=== PATIENT | female | born 1990 | race American Indian/Alaskan Native ===

== ENCOUNTER 2017-09-18 21:31 | Emergency (ER) | payer MEDICAID ==
[2017-09-18 23:11] LABS: Basophils % (Auto) 0.4 % (0.0-1.8); Eosinophils % (Auto) 0.5 % (0.0-4.3); Hematocrit 32.1 % (30.3-42.9); Hemoglobin 10.6 gm/dl (10.1-14.3); Lymphocytes # (Auto) 3.1 K/mm3 (1.2-5.4); Lymphocytes % (Auto) 31.4 % (13.4-35.0); Mean Corpuscular HGB Conc 33 % (30-34); Mean Corpuscular Hemoglobin 29 pg (28-32); Mean Corpuscular Volume 88 fl (79-97); Monocytes # (Auto) 0.6 K/mm3 (0.0-0.8); Monocytes % (Auto) 6.2 % (0.0-7.3); Platelet Count 238 K/mm3 (140-440); Red Blood Count 3.67 M/mm3 (3.65-5.03); Red Cell Distribution Width 12.9 % (13.2-15.2)
[2017-09-18 23:32] LABS: BUN/Creatinine Ratio 13; Blood Urea Nitrogen 5 mg/dL (7-17); Calcium 8.9 mg/dL (8.4-10.2); Hemolysis Index 8
[2017-09-19 04:19] LABS: Amorphous Crystals,Urine 1+; Bacteria,Urine 1+ /HPF (Negative); Bilirubin,Urine NEG (Negative); Blood,Urine NEG (Negative); Color,Urine Yellow (Yellow); Mucus,Urine 2+ /HPF; Nitrite,Urine NEG (Negative); Protein,Urine <15 mg/dL mg/dL (Negative)
[2017-09-19] MEDS ORDERED: NACL 0.9% 1000 ML 1,000 ML IV ONE (11:59)
[2017-09-19] MEDS ORDERED: ZOFRAN IV ONE (11:59)
--- NOTE | 2017-09-19 12:42 | Emergency Department Report ---
ED General Adult HPI - General Chief complaint: Nausea/Vomiting/Diarrhea Stated complaint: N/V,WEAKNESS Time Seen by Provider: 09/19/17 11:06 Source: patient Mode of arrival: Ambulatory Limitations: No Limitations - History of Present Illness Initial comments: Patient states her last normal menses was early August. She's been to her OB office but has not been seen by the doctor yet. She's had a positive test. She reports persistent nausea and occasional vomiting. She's had some generalized weakness and some minimal headache and she does not complain of any headache now. She denies abdominal pain. She's had no vaginal bleeding. She denies any pelvic pain. She does not complain of dysuria. -: days(s) Location: head Consistency: now resolved Improves with: none Worsens with: none Associated Symptoms: nausea/vomiting Treatments Prior to Arrival: none - Related Data Previous Rx's Medication Instructions Recorded Last Taken Type Ondansetron [Zofran Odt] 4 mg PO Q8H #7 tab.rapdis 09/19/17 Unknown Rx Allergies Allergy/AdvReac Type Severity Reaction Status Date / Time No Known Allergies Allergy Unverified 09/18/17 22:43 ED Review of Systems ROS: Stated complaint: N/V,WEAKNESS Other details as noted in HPI Constitutional: denies: chills, fever Eyes: denies: eye pain, eye discharge, vision change ENT: denies: ear pain, throat pain Respiratory: denies: cough, shortness of breath, wheezing Cardiovascular: denies: chest pain, palpitations Endocrine: no symptoms reported Gastrointestinal: nausea, vomiting. denies: abdominal pain, diarrhea Genitourinary: as per HPI. denies: urgency, dysuria, discharge Musculoskeletal: denies: back pain, joint swelling, arthralgia Skin: denies: rash, lesions Neurological: as per HPI, headache. denies: weakness, paresthesias Psychiatric: denies: anxiety, depression Hematological/Lymphatic: denies: easy bleeding, easy bruising ED Past Medical Hx - Past Medical History Additional medical history: Anemia - Surgical History Additional Surgical History: - Social History Smoking Status: Never Smoker Substance Use Type: None - Medications Home Medications: Home Medications Medication Instructions Recorded Confirmed Last Taken Type Ondansetron [Zofran Odt] 4 mg PO Q8H #7 tab.rapdis 09/19/17 Unknown Rx ED Physical Exam - General Limitations: No Limitations General appearance: alert, in no apparent distress, other (does appear mildly volume depleted) - Head Head exam: Present: atraumatic, normocephalic - Eye Eye exam: Present: normal appearance, PERRL, EOMI. Absent: scleral icterus - ENT ENT exam: Present: mucous membranes moist - Neck Neck exam: Present: normal inspection. Absent: tenderness, meningismus - Respiratory Respiratory exam: Present: normal lung sounds bilaterally. Absent: respiratory distress - Cardiovascular Cardiovascular Exam: Present: regular rate, normal rhythm. Absent: systolic murmur, diastolic murmur, rubs, gallop - GI/Abdominal GI/Abdominal exam: Present: soft, normal bowel sounds. Absent: distended, tenderness, guarding, rebound, rigid - Extremities Exam Extremities exam: Present: normal inspection - Back Exam Back exam: Present: normal inspection - Neurological Exam Neurological exam: Present: alert, oriented X3, CN II-XII intact. Absent: motor sensory deficit - Psychiatric Psychiatric exam: Present: normal affect, normal mood - Skin Skin exam: Present: warm, dry, intact, normal color. Absent: rash ED Course Vital Signs 09/18/17 09/19/17 09/19/17 22:36 09:50 11:19 Temperature 97.9 F 98.5 F Pulse Rate 62 53 L Respiratory 16 18 16 Rate Blood Pressure 102/65 110/28 O2 Sat by Pulse 100 100 Oximetry - Reevaluation(s) Reevaluation #1: Patient was given IV fluids 1 dose of Zofran with improvement. She is appropriate for outpatient management. 09/19/17 12:39 ED Medical Decision Making - Lab Data Result diagrams: 09/18/17 22:45 09/18/17 22:45 Laboratory Results - last 24 hr 09/18/17 09/18/17 09/18/17 22:45 22:45 22:45 WBC 9.8 RBC 3.67 Hgb 10.6 Hct 32.1 MCV 88 MCH 29 MCHC 33 RDW 12.9 L Plt Count 238 Lymph % (Auto) 31.4 [place] % (Auto) 6.2 Eos % (Auto) 0.5 Baso % (Auto) 0.4 Lymph # 3.1 [place] # 0.6 Eos # 0.0 Baso # 0.0 Seg Neutrophils % 61.5 Seg Neutrophils # 6.0 Sodium 137 Potassium 3.5 L Chloride 99.5 Carbon Dioxide 23 Anion Gap 18 BUN 5 L Creatinine 0.4 L Estimated GFR > 60 BUN/Creatinine Ratio 13 Glucose 95 POC Glucose Calcium 8.9 HCG, Qual Positive Urine Color Urine Turbidity Urine pH Ur Specific [place] Urine Protein Urine Glucose (UA) Urine Ketones Urine Blood Urine Nitrite Urine Bilirubin Urine Urobilinogen Ur Leukocyte Esterase Urine WBC (Auto) Urine RBC (Auto) U Epithel Cells (Auto) Urine Bacteria (Auto) Amorphous Crystals Urine Mucus 09/18/17 09/19/17 22:51 04:07 WBC RBC Hgb Hct MCV MCH MCHC RDW Plt Count Lymph % (Auto) [place] % (Auto) Eos % (Auto) Baso % (Auto) Lymph # [place] # Eos # Baso # Seg Neutrophils % Seg Neutrophils # Sodium Potassium Chloride Carbon Dioxide Anion Gap BUN Creatinine Estimated GFR BUN/Creatinine Ratio Glucose POC Glucose 105 Calcium HCG, Qual Urine Color Yellow Urine Turbidity Clear Urine pH 7.0 Ur Specific [place] 1.012 Urine Protein <15 mg/dl Urine Glucose (UA) Neg Urine Ketones Tr Urine Blood Neg Urine Nitrite Neg Urine Bilirubin Neg Urine Urobilinogen 2.0 Ur Leukocyte Esterase Tr Urine WBC (Auto) 3.0 Urine RBC (Auto) 2.0 U Epithel Cells (Auto) 25.0 H Urine Bacteria (Auto) 1+ Amorphous Crystals 1+ Urine Mucus 2+ Critical care attestation.: If time is entered above; I have spent that time in minutes in the direct care of this critically ill patient, excluding procedure time. ED Disposition Clinical Impression: Hyperemesis gravidarum, Dehydration Disposition: - TO HOME OR SELFCARE Is pt being admited?: No Does the pt Need Aspirin: No Condition: Stable Instructions: Hyperemesis Gravidarum (ED) Additional Instructions: Return as needed if recurrent symptoms. Otherwise follow-up with your OB physician. Increased fluids and advance as tolerated. Prescriptions: Ondansetron [Zofran Odt] 4 mg PO Q8H #7 tab.rapdis Referrals: SHAWN LANG MD [Primary Care Provider] - 3-5 Days usual, OB physician [Other] - 3-5 Days Time of Disposition: 12:41
[2017-09-19 19:23] VITALS: BP 112/78
== END 2017-09-19 13:00 | disposition home or self-care (01) ==
LOC: ED 21:31
DX: O21.1 Hyperemesis gravidarum with metabolic disturbance (principal); Z3A.01 Less than 8 weeks gestation of pregnancy; D64.9 Anemia, unspecified
CPT/HCPCS: 36415; 80048; 81001; 82962; 84703; 85025; 96361; 96374; 99283; J2405; J7030